=== PATIENT | male | born 1990 | race Caucasian/White ===

== ENCOUNTER 2016-05-11 17:25 | Emergency (ER) | payer SELFPAY ==
--- NOTE | ~2016-05-11 | ER ---
PATIENT'S NAME: FREDIS MARSH [facility] AGE: 26 Y [address] ROOM: [place] [id number] LOCATION: [facility] ADMIT DATE: 05/11/2016 ER/Outpatient Report DISCHARGE DATE: 05/11/2016 FAMILY PHYSICIAN: Gautam Velazquez MD ATTENDING PHYSICIAN: Chance Lofton Time of Arrival: 1730 hours. Time of Exam: 1730 hours. CHIEF COMPLAINT: Vomiting. HISTORY OF PRESENT ILLNESS: The patient states he has been sick for the past 8 or 9 days with cough and congestion. Says the cough does have some phlegm at times and does have a green to brown color at times. He has had a fever off and on. Today, he is having problems with dizziness. He has vomited at least 5 times. Has had diarrheal stool x2. He was on penicillin a week ago for an infected tooth. He has taken Tylenol and Motrin off and on. Today, he denies having any abdominal pain. Has not had any pain with urination. Has not had any change in his bladder pattern. ALLERGIES: NO KNOWN ALLERGIES. CURRENT MEDICATIONS: No current medications. PAST MEDICAL HISTORY: Benign. PAST SURGERIES: Negative. SOCIAL HISTORY: He denies the use of tobacco, alcohol, or illicit drugs. REVIEW OF SYSTEMS: All negative other than those mentioned in the HPI. PHYSICAL EXAMINATION: VITAL SIGNS: He states he is 6 feet tall, he weighed 161.9 kg. Blood pressure was 142/78, pulse of 102, respirations 18, temperature of 97.5, and O2 saturation was 95% on room air. GENERAL: He is awake, alert, and oriented x4. PATIENT'S NAME: FREDIS MARSH [facility] AGE: 26 Y [address] ROOM: [place] [id number] LOCATION: [facility] ADMIT DATE: 05/11/2016 ER/Outpatient Report DISCHARGE DATE: 05/11/2016 FAMILY PHYSICIAN: Gautam Velazquez MD ATTENDING PHYSICIAN: Chance Lofton SKIN: [place], warm, and dry. RESPIRATIONS: Even and nonlabored. HEENT: TMs are dull. Nasal is boggy. Oropharynx is clear. NECK: Supple. No lymphadenopathy. LUNGS: Lung sounds are clear throughout. HEART: Regular rate and rhythm. ABDOMEN: Soft and nondistended. Bowel sounds are present. EXTREMITIES: He walked in with a steady even gait. Moves all extremities strongly and equally. EMERGENCY DEPARTMENT COURSE: Saline lock was initiated with fluids of normal saline started at a wide-open rate. He was given Zofran 4 mg IV. Lab work was drawn. CBC is within normal limits. Chem panel is within normal limits. He did not have any vomiting or cough while he was here in the ER. He states he is feeling better with the fluids. IMPRESSION: Gastroenteritis. PLAN: Home, rest, fluids. Tylenol or ibuprofen for fever or discomfort. He can take the cough syrup that has DM in it for the next 2-3 days for cough. I did talk to him about [id number] allergy medicines to help calm down the allergy component of his symptoms. If his symptoms persist or worsen, he should follow up with his primary provider in the next 2 or 3 days. He verbalized understanding. JOHNATHON GRIER APRN FOR MD MY[facility] MELTON/emmanuelle /[id number] d: 05/12/16 0114 t: 05/16/16 1304, OUTPATIENT REPORT
[2016-05-11 17:58] LABS: BASOPHIL # 0.1 K/uL (0.0-0.2); BASOPHIL % 1.3 %; EOSINOPHIL # 0.2 K/uL (0.0-0.5); EOSINOPHIL % 2.2 %; HEMATOCRIT 43.5 % (37.0-53.0); HEMOGLOBIN 15.1 g/dL (12.0-17.0); IMMATURE GRANULOCYTE % 0.6 %; LYMPHOCYTE # 2.5 K/uL (0.8-4.0); MCH 29.6 pg (27.0-34.0); MCHC 34.7 gm/dL (32.0-36.5); MCV 85.3 fl (83.0-98.0); MONOCYTE # 0.5 K/uL (0.0-1.0); MONOCYTE % 6.8 %; MPV 10.3 fl (9.4-12.4); NEUTROPHIL # (ANC) 3.7 K/uL (1.4-9.0); NEUTROPHIL % 53.1 %; NRBC % 0 /100WBC (0-0.00); PLATELET COUNT 245 K/uL (150-450); RDW-CV 12.2 % (11.9-14.6); WBC 6.9 K/uL (4.0-11.0)
[2016-05-11 18:16] LABS: ALBUMIN 3.3 gm/dL (3.5-5.0); ALK PHOS 96 IU/L (33-138); ALT 37 IU/L (12-78); BLOOD UREA NITROGEN 12 mg/dL (6-24); CALCIUM 8.5 mg/dL (8.5-10.5); CHLORIDE 112 mMol/L (96-110); CO2 22 mMol/L (22-32); CREATININE 0.9 mg/dL (0.6-1.3); ESTIMATED GFR (MDRD EQUATION) > 60; SODIUM 145 mMol/L (135-145); TOTAL PROTEIN 6.9 g/dL (6.0-8.4)
[2016-05-11 18:20] LABS: ANION GAP 14.9 (10.0-19.0); AST 29 IU/L (10-40); POTASSIUM 3.9 mMol/L (3.7-5.1); TOTAL BILIRUBIN 0.3 mg/dL (0.0-1.5)
== END 2016-05-11 18:48 | disposition disaster alternative care site (69) ==
LOC: GMED 17:25
PROVIDERS: Emergency Medicine
DX: K52.9 Noninfective gastroenteritis and colitis, unspecified (principal)
CPT/HCPCS: J2405; J7030